=== PATIENT | female | born 2000 | race Caucasian/White ===

== ENCOUNTER 2018-12-27 18:29 | Emergency (ER) | payer OTHER ==
[2018-12-27] MEDS ORDERED: HYDROCODONE/ACETAMINOPHEN 5-325 MG TABLET PO ONE (19:48)
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
[2018-12-27 20:45] VITALS: BP 100/60
== END 2018-12-27 20:55 | disposition home or self-care (01) ==
LOC: ER 18:29
DX: S29.012A Strain of muscle and tendon of back wall of thorax, initial encounter (principal); R51 Headache; V89.2XXA Person injured in unspecified motor-vehicle accident, traffic, initial encounter; F17.200 Nicotine dependence, unspecified, uncomplicated
CPT/HCPCS: 99283; 73610; 72070; L4350

== ENCOUNTER 2019-10-02 20:16 | Emergency (ER) | payer OTHER ==
[2019-10-02] MEDS ORDERED: RINGERS SOLUTION,LACTATED 1,000 ML IV ONE (21:46)
--- NOTE | 2019-10-02 21:46 | ER Document Report ---
ED Medical Screen (RME) - General Chief Complaint: Weakness Stated Complaint: WEAKNESS/15 WEEKS Time Seen by Provider: 10/02/19 21:40 Mode of Arrival: Ambulatory Information source: Patient Notes: 19-year-old female approximately 15 weeks G1, P0 presents emergency department with reports of nausea and vomiting since yesterday. Reports she has been vomiting this entire . She reports now she is feeling lightheaded and dizzy almost fainted at work tonight. She reports she has been treated for this in the past at [facility] but this first time she is felt this way, dizzy and lightheaded with near syncope. She reports she took a Phenergan around noon and has not vomited since that time. She reports she urinated this morning and has not urinated since that time. Denies abdominal pain. Denies pain with void denies vaginal bleeding. Patient reports care is done at [facility]. I have greeted and performed a rapid initial assessment of this patient. A comprehensive ED assessment and evaluation of the patient, analysis of test results and completion of the medical decision making process will be conducted by additional ED providers. TRAVEL OUTSIDE OF THE [place] IN LAST 30 DAYS: No - Related Data Allergies/Adverse Reactions: No Known Allergies Allergy (Unverified 12/27/18 18:30) Past Medical History Renal/ Medical History: Denies: Hx Peritoneal Dialysis Past Surgical History: Reports: Hx Orthopedic Surgery - bilateral feet Physical Exam - Vital signs Vitals: Temp Pulse Resp BP Pulse Ox 98.5 F 85 16 92/52 L 100 10/02/19 20:27 10/02/19 20:27 10/02/19 20:27 10/02/19 20:27 10/02/19 20:27 Course - Vital Signs Vital signs: Temp Pulse Resp BP Pulse Ox 98.5 F 85 16 92/52 L 100 10/02/19 20:27 10/02/19 20:27 10/02/19 20:27 10/02/19 20:10/02/19 20:27
[2019-10-02 22:43] LABS: ABSOLUTE EOSINOPHILS # (AUTO) 0.1 10^3/uL (0.0-0.6); ABSOLUTE LYMPHOCYTES (AUTO) 1.7 10^3/uL (0.5-4.7); ABSOLUTE MONOCYTES (AUTO) 0.6 10^3/uL (0.1-1.4); ABSOLUTE NEUT (AUTO) 6.3 10^3/uL (1.7-8.2); BASOPHILS % (AUTO) 0.3 % (0-2); EOSINOPHILS % (AUTO) 1.2 % (0-6); HEMATOCRIT 33.2 % (36.0-47.0); HEMOGLOBIN 12.1 g/dL (12.0-15.5); LYMPHOCYTES % (AUTO) 19.5 % (13-45); MEAN CORPUSCULAR HEMOGLOBIN 32.1 pg (27.0-33.4); MEAN CORPUSCULAR HGB CONC 36.5 g/dL (32.0-36.0); MEAN CORPUSCULAR VOLUME 88 fl (80-97); MONOCYTES % (AUTO) 6.4 % (3-13); PLATELET COUNT 251 10^3/uL (150-450); RED BLOOD COUNT 3.78 10^6/uL (3.72-5.28); RED CELL DISTRIBUTION WIDTH 13.6 % (11.5-14.0); SEGMENTED NEUTROPHILS % (AUTO) 72.6 % (42-78); TOTAL CELLS COUNTED % (AUTO) 100 %; WHITE BLOOD COUNT 8.7 10^3/uL (4.0-10.5)
[2019-10-02 22:51] LABS: APPEARANCE,URINE SLIGHTLY-CLOUDY; BILIRUBIN,URINE NEGATIVE (NEGATIVE); COLOR,URINE YELLOW; GLUCOSE, URINE NEGATIVE (NEGATIVE); KETONES,URINE NEGATIVE (NEGATIVE); LEUKOCYTE ESTERASE,URINE SMALL (NEGATIVE); NITRITE,URINE NEGATIVE (NEGATIVE); PROTEIN,URINE NEGATIVE (NEGATIVE); URINE SPECIFIC GRAVITY 1.008
[2019-10-02 23:01] LABS: ALBUMIN 4.1 g/dL (3.5-5.0); ALKALINE PHOSPHATASE 44 U/L (38-126); ANION GAP 10 (5-19); ASPARTATE AMINO TRANSFERASE 21 U/L (14-36); BILIRUBIN,DIRECT 0.2 mg/dL (0.0-0.4); BILIRUBIN,TOTAL 0.5 mg/dL (0.2-1.3); BLOOD UREA NITROGEN 8 mg/dL (7-20); CALCIUM 9.5 mg/dL (8.4-10.2); CARBON DIOXIDE 25 mmol/L (22-30); CHLORIDE 100 mmol/L (98-107); GLUCOSE 79 mg/dL (75-110); POTASSIUM 4.1 mmol/L (3.6-5.0); TOTAL PROTEIN 7.1 g/dL (6.3-8.2)
--- NOTE | 2019-10-03 01:33 | ER Document Report ---
ED General - General Chief Complaint: Weakness Stated Complaint: WEAKNESS/15 WEEKS Time Seen by Provider: 10/02/19 21:40 Mode of Arrival: Ambulatory TRAVEL OUTSIDE OF THE [place] IN LAST 30 DAYS: No - HPI Notes: The patient is a 19-year-old 1 para 0 followed for routine care at the [facility] who is had problems with hyperemesis of . She says the clinic doctors there have treated her with Phenergan suppositories and also gave her some Zofran and neither is been very helpful. She has not been tried on Diclegis or Reglan. Vomited 3 times today. No abdominal pain or contractions. No vaginal bleeding. No fever, chills, dysuria or back pain. Patient is otherwise healthy. No prior surgery. No long-term medications. No known allergies. - Related Data Allergies/Adverse Reactions: No Known Allergies Allergy (Unverified 12/27/18 18:30) Home Medications: phenergan. vitamin Past Medical History - General Information source: Patient - Social History Smoking Status: Never Smoker Family History: Reviewed & Not Pertinent Patient has suicidal ideation: No Patient has homicidal ideation: No Renal/ Medical History: Denies: Hx Peritoneal Dialysis Past Surgical History: Reports: Hx Orthopedic Surgery - bilateral feet Review of Systems - Review of Systems Notes: Constitutional: Negative for fever. HENT: Negative for sore throat. Eyes: Negative for visual changes. Cardiovascular: Negative for chest pain. Respiratory: Negative for shortness of breath. Gastrointestinal: As per HPI. Genitourinary: Negative for dysuria. Musculoskeletal: Negative for back pain. Skin: Negative for rash. Neurological: Negative for headaches, weakness or numbness. 10 point ROS negative except as marked above and in HPI. Physical Exam - Vital signs Vitals: Temp Pulse Resp BP Pulse Ox 98.5 F 85 16 92/52 L 100 10/02/19 20:27 10/02/19 20:27 10/02/19 20:27 10/02/19 20:27 10/02/19 20:27 - Notes Notes: GENERAL: Well-developed well-nourished appearing in no acute distress. SKIN: Good turgor no rashes. HEAD: Normocephalic atraumatic. EYES: PERRLA. EOMI. Conjunctivae and sclerae clear. EARS: CANALS AND TMS CLEAR. NOSE: CLEAR. MOUTH: Moist mucosa. Good dentition. No stridor or edema. No drooling. NECK: Supple. No masses or thyromegaly. No adenopathy. Carotids 2+ without bruits. No JVD. BACK: Symmetrical without tenderness. CHEST: Respirations unlabored. Breath sounds clear and symmetrical. HEART: Regular rhythm. No murmur gallop or rub. ABDOMEN: Soft nontender without masses, organomegaly or rebound. Bowel sounds normally active. No bruits. GENITALIA: Deferred. EXTREMITIES: No edema. No calf tenderness. Cap refill less than 1.5 seconds. Dorsalis pedis and posterior tibial pulses 3+ and symmetrical. NEUROLOGICAL: GCS 15. Alert and oriented x3. Normal gait. Fluent speech. C ranial nerves II through XII intact. Sensorimotor and cerebellar normal. Normal tone. PSYCHIATRIC: Appropriate affect. Course - Re-evaluation Re-evalutation: 10/03/19 01:27 Labs are unremarkable. Patient was given 1 L of lactated Ringer's IV after arrival here. She was subsequently tolerated p.o. fluids without difficulty. Natalee redd talked at some length about the management of hyperemesis of . I am going to give her a prescription for diplegia's and suggest early follow-up with [facility]ENT[facility] COORDINATOR clinic at [facility]. - Vital Signs Vital signs: Temp Pulse Resp BP Pulse Ox 98.5 F 85 16 92/52 L 100 10/02/19 20:27 10/02/19 20:27 10/02/19 20:27 10/02/19 20:27 10/02/19 20:27 - Laboratory Result Diagrams: 10/02/19 22:24 10/02/19 22:24 Laboratory results interpreted by me: 10/02/19 10/02/19 10/02/19 22:24 22:24 22:24 Hct 33.2 L MCHC 36.5 H Sodium 134.7 L Creatinine 0.45 L Urine Urobilinogen 2.0 H Ur Leukocyte Esterase SMALL H Discharge - Discharge Clinical Impression: Hyperemesis affecting , antepartum Condition: Stable Disposition: HOME, SELF-CARE Additional Instructions: Follow-up with OB clinic at [facility]. Return here as needed for new or worsening symptoms: Pain that is worsening or unimproved Uncontrolled vomiting High fever or shaking chills Overall worsening Prescriptions: Doxylamine Succinate/Vit B6 [Lj Patel 10-10 mg Tablet] 2 each PO QHS #20 tablet.
[2019-10-03 01:40] VITALS: BP 96/61
== END 2019-10-03 01:41 | disposition home or self-care (01) ==
LOC: ER 20:16
DX: O26.892 Other specified pregnancy related conditions, second trimester (principal); O21.0 Mild hyperemesis gravidarum; Z3A.15 15 weeks gestation of pregnancy
CPT/HCPCS: 99284; 96360; 36415; 85025; 80053; 81001; J7120

== ENCOUNTER 2019-10-07 17:11 | Emergency (ER) | payer OTHER ==
[2019-10-07] MEDS ORDERED: RINGERS SOLUTION,LACTATED 1,000 ML IV ONE (17:24)
[2019-10-07] MEDS ORDERED: METOCLOPRAMIDE HCL INJ/PF 10 MG/2 ML SDV IV ONE (17:24)
--- NOTE | 2019-10-07 17:27 | ER Document Report ---
ED Medical Screen (RME) - General Chief Complaint: Vomiting Stated Complaint: VOMITING Time Seen by Provider: 10/07/19 17:21 Mode of Arrival: Ambulatory Information source: Patient Notes: 19-year-old female approximately 16 weeks G1, P0 presents emergency department with complaints of nausea vomiting since she became some abdominal cramping since yesterday. She was evaluated and treated for same last week. Reports she felt a little bit better. But for the past 2 days she has been vomiting. Denies fever. Denies vaginal bleeding denies pain with void. Patient reports some abdominal cramping. Patient reports she has not been able to hold anything down for the past 2 days. I have greeted and performed a rapid initial assessment of this patient. A comprehensive ED assessment and evaluation of the patient, analysis of test results and completion of the medical decision making process will be conducted by additional ED providers. TRAVEL OUTSIDE OF THE [place] IN LAST 30 DAYS: No - Related Data Allergies/Adverse Reactions: No Known Allergies Allergy (Verified 10/07/19 17:17) Past Medical History Renal/ Medical History: Denies: Hx Peritoneal Dialysis Past Surgical History: Reports: Hx Orthopedic Surgery - bilateral feet Physical Exam - Vital signs Vitals: Temp Pulse Resp BP Pulse Ox 97.9 F 104 H 20 123/68 100 10/07/19 17:15 10/07/19 17:15 10/07/19 17:15 10/07/19 17:15 10/07/19 17:15 Course - Vital Signs Vital signs: Temp Pulse Resp BP Pulse Ox 97.9 F 104 H 20 123/68 100 10/07/19 17:15 10/07/19 17:15 10/07/19 17:15 10/07/19 17:15 10/07/19 17:15
[2019-10-07 18:16] LABS: ABSOLUTE EOSINOPHILS # (AUTO) 0.1 10^3/uL (0.0-0.6); ABSOLUTE LYMPHOCYTES (AUTO) 2.2 10^3/uL (0.5-4.7); ABSOLUTE MONOCYTES (AUTO) 0.5 10^3/uL (0.1-1.4); ABSOLUTE NEUT (AUTO) 6.7 10^3/uL (1.7-8.2); BASOPHILS % (AUTO) 0.3 % (0-2); EOSINOPHILS % (AUTO) 0.7 % (0-6); LYMPHOCYTES % (AUTO) 22.8 % (13-45); MEAN CORPUSCULAR HGB CONC 36.3 g/dL (32.0-36.0); MEAN CORPUSCULAR VOLUME 88 fl (80-97); MONOCYTES % (AUTO) 5.7 % (3-13); PLATELET COUNT 257 10^3/uL (150-450); RED BLOOD COUNT 3.74 10^6/uL (3.72-5.28); RED CELL DISTRIBUTION WIDTH 13.6 % (11.5-14.0); SEGMENTED NEUTROPHILS % (AUTO) 70.5 % (42-78); TOTAL CELLS COUNTED % (AUTO) 100 %; WHITE BLOOD COUNT 9.5 10^3/uL (4.0-10.5)
[2019-10-07 18:35] LABS: AMORPHOUS SEDIMENT,URINE TRACE /HPF; APPEARANCE,URINE CLOUDY; BILIRUBIN,URINE NEGATIVE (NEGATIVE); COLOR,URINE AMBER; GLUCOSE, URINE NEGATIVE (NEGATIVE); KETONES,URINE 80 mg/dL (NEGATIVE); PROTEIN,URINE 100 mg/dL (NEGATIVE); URINE SPECIFIC GRAVITY 1.035
[2019-10-07 18:50] LABS: ALBUMIN 4.1 g/dL (3.5-5.0); ALKALINE PHOSPHATASE 44 U/L (38-126); ANION GAP 12 (5-19); ASPARTATE AMINO TRANSFERASE 21 U/L (14-36); BILIRUBIN,TOTAL 0.6 mg/dL (0.2-1.3); BLOOD UREA NITROGEN 9 mg/dL (7-20); CALCIUM 9.4 mg/dL (8.4-10.2); CARBON DIOXIDE 23 mmol/L (22-30); CHLORIDE 99 mmol/L (98-107); GLUCOSE 127 mg/dL (75-110); POTASSIUM 3.5 mmol/L (3.6-5.0); TOTAL PROTEIN 6.9 g/dL (6.3-8.2)
--- NOTE | 2019-10-07 19:41 | RADIOLOGY REPORT (SQ) ---
EXAM DESCRIPTION: U/S [id number] TRNABD 1GES W/ODOP COMPLETED DATE/TIME: 10/07/2019 7:05 pm REASON FOR STUDY: 16 weeks preg n/v, abd cramping COMPARISON: None. TECHNIQUE: Limited transabdominal grayscale ultrasound for evaluation of specific requested obstetri nikita parameters. LIMITATIONS: None. FINDINGS: CERVICAL LENGTH: 2.1 cm. Closed. LV P: 4.5 x 3 cm cm. FHR: 152 beats per minute. PRESENTATION: Breech PLACENTA: Anterior, grade 1. ANATOMY: Not assessed OTHER: Estimated gestational age is 16 weeks 0 days. MELINA 03/23/2020. IMPRESSION: LIMITED OBSTETRICAL ULTRASOUND WITH MEASURED PARAMETERS DELINEATED ABOVE. Trimester of : Second trimester - 13 weeks 1 day to 27 weeks 6 days. TECHNICAL DOCUMENTATION: JOB ID: [id number] [employer]- All Rights Reserved Reading location - IP/workstation name: [email or web address]
--- NOTE | 2019-10-07 19:48 | ER Document Report ---
ED General - General Chief Complaint: Nausea/Vomiting Stated Complaint: VOMITING Time Seen by Provider: 10/07/19 17:21 Mode of Arrival: Ambulatory TRAVEL OUTSIDE OF THE [place] IN LAST 30 DAYS: No - HPI Notes: Patient presents with nausea and vomiting during . She states she is she has had this for the last several weeks. She states she has been tried with vitamin B6 as well as was Zofran. She states that vitamin B6 did not work. She states Zofran did not work but her STOCKROOM CLERK would not prescribe any more of the Zofran. She also states that Phenergan helped but she is out of Phenergan. She states she has no significant abdominal pain except for some mild cramping when she vomits. This radiates across the abdomen it is mild in intensity. It is worse with vomiting better when she does not. She has had no leakage of vaginal fluid or bleeding. No problem with urine or stool. No rashes. This is her first . She is followed by obstetrics at the [facility]. - Related Data Allergies/Adverse Reactions: No Known Allergies Allergy (Verified 10/07/19 17:17) Past Medical History - General Information source: Patient - Social History Smoking Status: Never Smoker Chew tobacco use (# tins/day): No Frequency of alcohol use: None Drug Abuse: None Family History: Reviewed & Not Pertinent Patient has suicidal ideation: No Patient has homicidal ideation: No Renal/ Medical History: Denies: Hx Peritoneal Dialysis Past Surgical History: Reports: Hx Orthopedic Surgery - bilateral feet Review of Systems - Review of Systems Constitutional: denies: Chills, Fever Cardiovascular: denies: Chest pain, Palpitations Respiratory: denies: Cough, Short of breath -: Yes All other systems reviewed and negative Physical Exam - Vital signs Vitals: Temp Pulse Resp BP Pulse Ox 97.9 F 104 H 20 123/68 100 10/07/19 17:15 10/07/19 17:15 10/07/19 17:15 10/07/19 17:15 10/07/19 17:15 Interpretation: Normal - General General appearance: Appears well, Alert - HEENT Head: Normocephalic, Atraumatic Eyes: Normal Pupils: PERRL - Respiratory Respiratory status: No respiratory distress Chest status: Nontender Breath sounds: Normal Chest palpation: Normal - Cardiovascular Rhythm: Regular Heart sounds: Normal auscultation Murmur: No - Abdominal Inspection: Normal Distension: No distension Bowel sounds: Normal Tenderness: Nontender Organomegaly: No organomegaly - Back Back: Normal, Nontender - Extremities General upper extremity: Normal inspection, Nontender, Normal color, Normal ROM, Normal temperature General lower extremity: Normal inspection, Nontender, Normal color, Normal ROM, Normal temperature, Normal weight bearing. No: Petar's sign - Neurological Neuro grossly intact: Yes Cognition: Normal Orientation: AAOx4 [place] Coma Scale Eye Opening: Spontaneous [place] Coma Scale Verbal: Oriented [place] Coma Scale Motor: Obeys Commands Zhen Coma Scale Total: 15 Speech: Normal Motor strength normal: LUE, RUE, LLE, RLE Sensory: Normal - Psychological Associated symptoms: Normal affect, Normal mood - Skin Skin Temperature: Warm Skin Moisture: Dry Skin Color: Normal Course - Re-evaluation Re-evalutation: 10/07/19 19:46 Patient presents with hyperemesis. After treatment here she feels significantly better. I will discharge patient home with some Reglan have her follow-up with her cycle manager. - Vital Signs Vital signs: Temp Pulse Resp BP Pulse Ox 97.9 F 104 H 20 123/68 100 10/07/19 17:15 10/07/19 17:15 10/07/19 17:15 10/07/19 17:15 10/07/19 17:15 - Laboratory Result Diagrams: 10/07/19 17:48 10/07/19 17:48 Laboratory results interpreted by me: 10/07/19 10/07/19 10/07/19 17:48 17:48 18:12 Hct 33.0 L MCHC 36.3 H Sodium 133.7 L Potassium 3.5 L Creatinine 0.50 L Glucose 127 H Urine Protein 100 H Urine Ketones 80 H Urine Urobilinogen 2.0 H - Diagnostic Test Radiology reviewed: Image reviewed, Reports reviewed Discharge - Discharge Clinical Impression: Hyperemesis gravidarum Condition: Stable Disposition: HOME, SELF-CARE Instructions: Vomiting ([facility]), Intravenous (IV) Fluids ([facility]), Reglan ([facility]) Additional Instructions: Please call your cycle manager as soon as possible to arrange follow-up. Prescriptions: Metoclopramide HCl [Reglan 10 mg Tablet] 1 tab PO Q6 3 Days #12 tablet Forms: Return to Work
[2019-10-07 20:13] VITALS: BP 91/51
== END 2019-10-07 20:15 | disposition home or self-care (01) ==
LOC: ER 17:11
DX: O21.0 Mild hyperemesis gravidarum (principal); R10.9 Unspecified abdominal pain; Z3A.00 Weeks of gestation of pregnancy not specified
CPT/HCPCS: 99284; 96361; 96374; 36415; 85025; 80053; 81001; 76801; J2765; J7120